=== PATIENT | male | born 1950 | race American Indian/Alaskan Native ===

== ENCOUNTER 2018-04-04 22:32 | Emergency (ER) | payer MEDICARE ==
[2018-04-04 23:31] LABS: Basophils % (Auto) 0.1 % (0.0-1.8); Hemoglobin 12.8 gm/dl (11.8-15.2); Lymphocytes # (Auto) 0.6 K/mm3 (1.2-5.4); Lymphocytes % (Auto) 4.1 % (13.4-35.0); Monocytes # (Auto) 1.6 K/mm3 (0.0-0.8)
[2018-04-04 23:45] LABS: Hematocrit 39.2 % (35.5-45.6); Mean Corpuscular HGB Conc 33 % (32-34); Mean Corpuscular Hemoglobin 31 pg (28-32); Mean Corpuscular Volume 95 fl (84-94); Platelet Count 396 K/mm3 (140-440); Red Blood Count 4.15 M/mm3 (3.65-5.03); Red Cell Distribution Width 18.2 % (13.2-15.2)
[2018-04-04 23:57] LABS: Alanine Aminotransferase 140 units/L (7-56); Albumin 2.9 g/dL (3.9-5); BUN/Creatinine Ratio 11; Blood Urea Nitrogen 12 mg/dL (9-20); Calcium 8.2 mg/dL (8.4-10.2); Hemolysis Index 1; Lipase 46 units/L (13-60)
[2018-04-05] MEDS ORDERED: NACL 0.9% 1000 ML 1,000 ML IV ONE (00:24)
[2018-04-05] MEDS ORDERED: ZOFRAN IV ONE (00:24)
[2018-04-05] MEDS ORDERED: SUBLIMAZE IV ONE (00:25)
[2018-04-05] MEDS ORDERED: LASIX IV ONE (00:47)
--- NOTE | 2018-04-05 00:54 | Emergency Department Report ---
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 The patient reports upper abdominal pain for the past 2 days, moderate in severity, crampy in quality, constant since onset, although waxing and waning, and associated with nausea without emesis. The patient denies fever, chills, night sweats, chest pain, dyspnea, cough, hematemesis, diarrhea, blood in the stool, dark tarry stool, dysuria, hematuria , flank pain, genital discharge, inability to pass flatus. ED Past Medical Hx - Past Medical History Previous Medical History?: Yes Hx Hypertension: Yes Hx GERD: Yes Hx Liver Disease: Yes (CANCER) Hx Renal Disease: Yes (RENAL iNSUFFICIENCY) Hx of Cancer: Yes (kidney) Hx Tuberculosis: No - Surgical History Past Surgical History?: Yes Additional Surgical History: RIGHT KIDNEY REMOVED, LEFT HIP REPLACEMENT, RIGHT HIP SURGERY. bilateral femur. - Social History Smoking Status: Never Smoker Substance Use Type: None - Medications Home Medications: Home Medications Medication Instructions Recorded Confirmed Last Taken Type Cholecalciferol (Vitamin D3) 2,000 unit PO DAILY 03/16/18 03/16/18 Unknown History [Vitamin D3] Everolimus [Afinitor] 5 mg PO QDAY 03/16/18 03/16/18 Unknown History Lenvatinib Mesylate [Lenvima] 14 mg PO QDAY 03/16/18 03/16/18 Unknown History Multivitamin Tab [Multiple Vitamin 1 each PO QDAY 03/16/18 03/16/18 Unknown History TAB (Theragran)] oxyCODONE /ACETAMINOPHEN [Percocet 1 tab PO Q4-6H PRN 03/16/18 03/16/18 Unknown History 5/325] traMADol [Ultram] 50 mg PO Q12H PRN 03/16/18 03/16/18 Unknown History Oxycodone HCl/Acetaminophen 1 each PO Q6HR PRN #30 tablet 03/22/18 Unknown Rx [Percocet 7.5/325 mg] Pantoprazole [Protonix] 40 mg PO QDAY #30 tablet 03/22/18 Unknown Rx ED Review of Systems ROS: Stated complaint: ABD PAIN Other details as noted in HPI Constitutional: denies: fever ENT: denies: throat or neck pain Respiratory: denies: cough, shortness of breath Cardiovascular: denies: chest pain Endocrine: denies unexplained weight loss or gain Gastrointestinal: reports abdominal pain, nausea Genitourinary: denies: dysuria Musculoskeletal: denies: leg swelling Skin: denies: rash Neurological: denies: headache Hematological/Lymphatic: denies: easy bleeding or easy bruising Psych: denies sadness or hopelessness Physical Exam - Physical Exam Vital Signs: Vital Signs 04/04/18 22:37 Temperature 97.7 F Pulse Rate 92 H Respiratory 20 Rate Blood Pressure 168/76 O2 Sat by Pulse 98 Oximetry Physical Exam: General: well-nourished, well-developed, no acute distress Head: Normocephalic, atraumatic Eyes: normal sclera ENT: Mucous membranes are pink and moist Neck: trachea midline, neck supple, No neck stiffness, no cervical adenopathy Respiratory: Breath sounds equal bilaterally, no wheezing, rales, or rhonchi Cardio: S1 and S2 present, no murmurs, rubs, gallops, capillary refill is delayed Abdomen: Normoactive bowel sounds, soft abdomen, right upper quadrant and epigastric tenderness to palpation present, no rigidity, no guarding or rebound tenderness Chest WALL/Back: No tenderness to palpation of the chest wall, no CVA tenderness with percussion Musc: 1+ pitting edema of the bilateral lower extremity is present Skin: No rash Neuro: no facial drooping, normal speech Psych: Normal affect ED Course Vital Signs 04/04/18 22:37 Temperature 97.7 F Pulse Rate 92 H Respiratory 20 Rate Blood Pressure 168/76 O2 Sat by Pulse 98 Oximetry ED Medical Decision Making - Lab Data Result diagrams: 04/04/18 22:55 04/04/18 22:55 - Medical Decision Making The patient was seen and examined by myself. The patient is placed on a conveyor system dispatcher and continuous pulse ox. On initial evaluation, the patient was found to be in no distress. Evaluation orders are placed. IV access is established and the patient is Zofran for nausea, and IV analgesic for pain. The patient refused the fluid bolus due to his leg swelling and concern that he was fluid overloaded during previous hospital stay. The patient is alert oriented 4 and is competent to refuse fluids. As the patient has pitting edema on exam, and has maintained a normal SBP and MAP, and does not meet severe sepsis criteria thus, 30cc/kg NS fluid bolus is not required at this time and the patient is allowed to refuse fluid infusion. He is given IV Lasix as he requests medication for treatment of his pitting edema. Lab results revealed leukocytosis, WBC 15, and mildly elevated total bilirubin and AST, uptrending from previous labs obtained on admission 3 weeks ago. Beta natruretic peptide and lactic acid levels are pending. As patient's found to have tachycardia and leukocytosis with elevated LFTs, Zosyn is ordered for treatment of suspected cholecystitis. Ultrasound of the abdomen is unrevealing of any gallbladder pathology. CT scan of the abdomen and pelvis with IV contrast is ordered and is pending. The patient is signed out to the night assistant physician Dr. Fernando, whom agrees to follow-up on the patient's pending imagin, and to ultimately arrange appropriate disposition. Critical care attestation.: If time is entered above; I have spent that time in minutes in the direct care of this critically ill patient, excluding procedure time. ED Disposition Clinical Impression: Acute abdominal pain in right upper quadrant, Elevated LFTs, Cholecystitis, acute Sepsis Qualifiers: Sepsis type: sepsis due to unspecified organism Qualified Code(s): A41.9 - Sepsis, unspecified organism Disposition: OP ADMIT IP TO THIS HOSP Is pt being admited?: Yes Condition: Serious Referrals: PRIMARY CARE, [Primary Care Provider] - 3-5 Days Time of Disposition: 00:53
--- NOTE | 2018-04-05 01:14 | Ultrasound Report ---
FINAL REPORT PROCEDURE: US ABDOMEN LIMITED TECHNIQUE: Real-time sonography was performed of the gallbladder with image documentation. CPT 41095 HISTORY: right upper quadrant abd pain COMPARISON: No prior studies are available for comparison. FINDINGS: The gallbladder lumen is normal. Common bile duct measures 4.2 millimeters. There is a small cyst on the right lobe of the liver this measures 23 millimeters. The right kidney is absent. Mild effusion in the right lower lung is noted. IMPRESSION: Normal gallbladder lumen. The right kidney is absent. Mild right pleural effusion
[2018-04-05 01:51] LABS: Bilirubin,Urine SM (Negative); Blood,Urine NEG (Negative); Color,Urine Amber (Yellow); Mucus,Urine FEW /HPF
[2018-04-05] MEDS ORDERED: ZOSYN/NS 3.375GM/50ML 3.375 GM/50 ML BAG IV SCH (02:00)
[2018-04-05 02:03] LABS: Ictotest,Urine Negative (Negative)
--- NOTE | 2018-04-05 03:03 | Cat Scan Report ---
FINAL REPORT PROCEDURE: CT ABDOMEN PELVIS W CON TECHNIQUE: Computerized axial tomography of the abdomen and pelvis was performed after the IV injection of iodinated nonionic contrast. HISTORY: abdominal pain COMPARISON: No prior studies are available for comparison. FINDINGS: Visualized lower thorax: Bilateral lower atelectasis with slight infiltrates and bilateral moderate effusions.. Liver: The liver contains multiple areas contrast-enhancing mixed attenuated lesions. Metastatic change is identified.. Spleen: Normal size and attenuation. Gallbladder and biliary system: There are multiple small stones in the gallbladder lumen. There is mild dilatation of central biliary ductal system. Pancreas: Normal. Adrenals: Normal. Kidneys: The left kidney has a normal size. No hydronephrosis. The right kidney is absent.. GI tract: No obstruction. No ileus or enteritis. There is mild fecal debris throughout the colon.. Lymph nodes and mesentery: Significant adenopathy identified in the periaortic and retrocaval region. These measure up to 4 centimeters. Vasculature: Mild atherosclerosis of the aorta and all branching vessels. Bladder: Normal. Reproductive organs: Normal. Peritoneum: Mild free fluid in the lower pelvis.. Musculoskeletal structures: Moderate degenerative changes of the osseous structures. There is been previous left hip arthroplasty. This does create some artifact in lower pelvis.. Other: Moderate soft tissue anasarca. IMPRESSION: Diffuse metastatic change of the liver is identified. Cholelithiasis with slight dilatation of the biliary ductal system. Previous right nephrectomy. Significant lymphadenopathy in the periaortic and retrocaval regions. These measure up to 4 centimeters. Bilateral lower lung atelectasis with slight infiltrates and moderate effusions.
--- NOTE | 2018-04-05 03:09 | XRay Report ---
FINAL REPORT PROCEDURE: XR CHEST 1V AP TECHNIQUE: Chest radiograph anteroposterior view. CPT 26757 HISTORY: dyspnea COMPARISON: No prior studies are available for comparison. FINDINGS: Heart: Normal. Mediastinum/Vessels: Normal. Lungs/Pleural space: Mild infiltrate left lower lung. Bony thorax: No acute osseous abnormality. Life support devices: None. IMPRESSION: Slight infiltrate left lower lung.
[2018-04-05 04:38] VITALS: BP 139/62
--- NOTE | 2018-04-05 04:46 | Event Note ---
Date: 04/05/18 Patient is going to be transferred as per [place] request and recommendation to [facility], accepting physician is Dr. Dorsey. Clinical picture suggestive of sepsis secondary to pneumonia and possible cholangitis. Vital Signs 04/04/18 04/05/18 04/05/18 22:37 01:26 01:30 Temperature 97.7 F Pulse Rate 92 H Respiratory 20 Rate Blood Pressure 168/76 167/74 Blood Pressure [Left] O2 Sat by Pulse 98 97 98 Oximetry 04/05/18 04/05/18 04/05/18 01:33 01:58 02:00 Temperature 97.6 F Pulse Rate 78 Respiratory 16 16 Rate Blood Pressure 148/65 Blood Pressure 160/74 [Left] O2 Sat by Pulse 99 95 Oximetry 04/05/18 04/05/18 04:10 04:30 Temperature Pulse Rate Respiratory Rate Blood Pressure 148/65 139/62 Blood Pressure [Left] O2 Sat by Pulse 96 96 Oximetry Lab Results 04/04/18 04/04/18 04/04/18 Range/Units 01:13 22:55 22:55 WBC 15.7 H (4.5-11.0) K/mm3 RBC 4.15 (3.65-5.03) M/mm3 Hgb 12.8 (11.8-15.2) gm/dl Hct 39.2 (35.5-45.6) % MCV 95 H (84-94) fl MCH 31 (28-32) pg MCHC 33 (32-34) % RDW 18.2 H (13.2-15.2) % Plt Count 396 (140-440) K/mm3 Lymph % (Auto) 4.1 L (13.4-35.0) % [place] % (Auto) 10.0 H (0.0-7.3) % Eos % (Auto) 0.0 (0.0-4.3) % Baso % (Auto) 0.1 (0.0-1.8) % Lymph # 0.6 L (1.2-5.4) K/mm3 [place] # 1.6 H (0.0-0.8) K/mm3 Eos # 0.0 (0.0-0.4) K/mm3 Baso # 0.0 (0.0-0.1) K/mm3 Seg Neutrophils % 85.8 H (40.0-70.0) % Seg Neutrophils # 13.5 H (1.8-7.7) K/mm3 Sodium 136 L (137-145) mmol/L Potassium 5.0 (3.6-5.0) mmol/L Chloride 98.8 (98-107) mmol/L Carbon Dioxide 23 (22-30) mmol/L Anion Gap 19 mmol/L BUN 12 (9-20) mg/dL Creatinine 1.1 (0.8-1.5) mg/dL Estimated GFR > 60 ml/min BUN/Creatinine Ratio 11 % Glucose 116 H (75-100) mg/dL Lactic Acid (0.7-2.0) mmol/L Calcium 8.2 L (8.4-10.2) mg/dL Total Bilirubin 4.20 H (0.1-1.2) mg/dL AST 379 H (5-40) units/L ALT 140 H (7-56) units/L Alkaline Phosphatase 717 H (35-129) units/L NT-Pro-B Natriuret Pep (0-900) pg/mL Total Protein 6.0 L (6.3-8.2) g/dL Albumin 2.9 L (3.9-5) g/dL Albumin/Globulin Ratio 0.9 % Lipase 46 (13-60) units/L Urine Color [place] (Yellow) Urine Turbidity Clear (Clear) Urine pH 5.0 (5.0-7.0) Ur Specific [place] 1.031 H (1.003-1.030) Urine Protein 30 mg/dl (Negative) mg/dL Urine Glucose (UA) Neg (Negative) mg/dL Urine Ketones Tr (Negative) mg/dL Urine Blood Neg (Negative) Urine Nitrite Neg (Negative) Urine Bilirubin Sm (Negative) Urine Ictotest Negative (Negative) Urine Urobilinogen 4.0 (<2.0) mg/dL Ur Leukocyte Esterase Neg (Negative) Urine WBC (Auto) 3.0 (0.0-6.0) /HPF Urine RBC (Auto) 3.0 (0.0-6.0) /HPF Urine Mucus Few /HPF 04/05/18 04/05/18 04/05/18 Range/Units 01:17 01:17 02:59 WBC (4.5-11.0) K/mm3 RBC (3.65-5.03) M/mm3 Hgb (11.8-15.2) gm/dl Hct (35.5-45.6) % MCV (84-94) fl MCH (28-32) pg MCHC (32-34) % RDW (13.2-15.2) % Plt Count (140-440) K/mm3 Lymph % (Auto) (13.4-35.0) % [place] % (Auto) (0.0-7.3) % Eos % (Auto) (0.0-4.3) % Baso % (Auto) (0.0-1.8) % Lymph # (1.2-5.4) K/mm3 [place] # (0.0-0.8) K/mm3 Eos # (0.0-0.4) K/mm3 Baso # (0.0-0.1) K/mm3 Seg Neutrophils % (40.0-70.0) % Seg Neutrophils # (1.8-7.7) K/mm3 Sodium (137-145) mmol/L Potassium (3.6-5.0) mmol/L Chloride (98-107) mmol/L Carbon Dioxide (22-30) mmol/L Anion Gap mmol/L BUN (9-20) mg/dL Creatinine (0.8-1.5) mg/dL Estimated GFR ml/min BUN/Creatinine Ratio % Glucose (75-100) mg/dL Lactic Acid 2.50 H* 2.40 H* (0.7-2.0) mmol/L Calcium (8.4-10.2) mg/dL Total Bilirubin (0.1-1.2) mg/dL AST (5-40) units/L ALT (7-56) units/L Alkaline Phosphatase (35-129) units/L NT-Pro-B Natriuret Pep 3098 H (0-900) pg/mL Total Protein (6.3-8.2) g/dL Albumin (3.9-5) g/dL Albumin/Globulin Ratio % Lipase (13-60) units/L Urine Color (Yellow) Urine Turbidity (Clear) Urine pH (5.0-7.0) Ur Specific [place] (1.003-1.030) Urine Protein (Negative) mg/dL Urine Glucose (UA) (Negative) mg/dL Urine Ketones (Negative) mg/dL Urine Blood (Negative) Urine Nitrite (Negative) Urine Bilirubin (Negative) Urine Ictotest (Negative) Urine Urobilinogen (<2.0) mg/dL Ur Leukocyte Esterase (Negative) Urine WBC (Auto) (0.0-6.0) /HPF Urine RBC (Auto) (0.0-6.0) /HPF Urine Mucus /HPF 04/05/18 Range/Units 04:17 WBC (4.5-11.0) K/mm3 RBC (3.65-5.03) M/mm3 Hgb (11.8-15.2) gm/dl Hct (35.5-45.6) % MCV (84-94) fl MCH (28-32) pg MCHC (32-34) % RDW (13.2-15.2) % Plt Count (140-440) K/mm3 Lymph % (Auto) (13.4-35.0) % [place] % (Auto) (0.0-7.3) % Eos % (Auto) (0.0-4.3) % Baso % (Auto) (0.0-1.8) % Lymph # (1.2-5.4) K/mm3 [place] # (0.0-0.8) K/mm3 Eos # (0.0-0.4) K/mm3 Baso # (0.0-0.1) K/mm3 Seg Neutrophils % (40.0-70.0) % Seg Neutrophils # (1.8-7.7) K/mm3 Sodium (137-145) mmol/L Potassium (3.6-5.0) mmol/L Chloride (98-107) mmol/L Carbon Dioxide (22-30) mmol/L Anion Gap mmol/L BUN (9-20) mg/dL Creatinine (0.8-1.5) mg/dL Estimated GFR ml/min BUN/Creatinine Ratio % Glucose (75-100) mg/dL Lactic Acid 1.80 (0.7-2.0) mmol/L Calcium (8.4-10.2) mg/dL Total Bilirubin (0.1-1.2) mg/dL AST (5-40) units/L ALT (7-56) units/L Alkaline Phosphatase (35-129) units/L NT-Pro-B Natriuret Pep (0-900) pg/mL Total Protein (6.3-8.2) g/dL Albumin (3.9-5) g/dL Albumin/Globulin Ratio % Lipase (13-60) units/L Urine Color (Yellow) Urine Turbidity (Clear) Urine pH (5.0-7.0) Ur Specific [place] (1.003-1.030) Urine Protein (Negative) mg/dL Urine Glucose (UA) (Negative) mg/dL Urine Ketones (Negative) mg/dL Urine Blood (Negative) Urine Nitrite (Negative) Urine Bilirubin (Negative) Urine Ictotest (Negative) Urine Urobilinogen (<2.0) mg/dL Ur Leukocyte Esterase (Negative) Urine WBC (Auto) (0.0-6.0) /HPF Urine RBC (Auto) (0.0-6.0) /HPF Urine Mucus /HPF
== END 2018-04-05 05:28 | disposition short-term general hospital (02) ==
LOC: ED 22:32
DX: A41.9 Sepsis, unspecified organism (principal); R10.11 Right upper quadrant pain; K81.0 Acute cholecystitis; R79.89 Other specified abnormal findings of blood chemistry; I10 Essential (primary) hypertension; K21.9 Gastro-esophageal reflux disease without esophagitis; Z85.05 Personal history of malignant neoplasm of liver; Z85.528 Personal history of other malignant neoplasm of kidney
CPT/HCPCS: 36415; 71045; 74177; 76705; 80053; 81001; 82140; 83690; 83880; 85025; 87040; 96365; 96375; 99285; J1940; J2405; J2543; J3010; Q9967